=== PATIENT | male | born 1980 ===

== ENCOUNTER 2024-01-07 10:36 | Emergency (ER) | payer MEDICAID ==
[~2024-01-07] VITALS: Ht 177.8 cm; Wt 72.7 kg
[2024-01-07] MEDS: dicyclomine 10 MG capsule PO ONE (11:38)
[2024-01-07] MEDS: ondansetron 4mg rapidly disintigrating tab PO ONE (11:38)
[2024-01-07] MEDS: loperamide 2mg capsule PO ONE (11:39)
[2024-01-07 11:58] LABS: BASOPHILS # (AUTO) 0.1 X10'3 (0-0.2); BASOPHILS % (AUTO) 0.7 % (0-1); EOSINOPHILS % (AUTO) 0 % (0-6); HEMATOCRIT 46.2 % (42.0-52.0); HEMOGLOBIN 15.2 g/dl (14.0-17.9); LYMPHOCYTES # (AUTO) 0.9 X10'3 (1.1-4.8); LYMPHOCYTES % (AUTO) 5.6 % (21-51); MEAN CORPUSCULAR HEMOGLOBIN 29.3 PG (27.0-31.0); MEAN CORPUSCULAR HGB CONC 32.8 g/dL (33.0-36.5); MEAN CORPUSCULAR VOLUME 89.3 FL (78-98); MEAN PLATELET VOLUME 7.3 FL (7.4-10.4); MONOCYTES # (AUTO) 0.9 X10'3 (0-0.9); MONOCYTES % (AUTO) 5.8 % (2-12); NEUTROPHILS # (AUTO) 13.5 X10'3 (1.8-7.7); NEUTROPHILS % (AUTO) 87.9 % (42-75); PLATELET COUNT 360 X10'3 (140-440); RED BLOOD COUNT 5.17 X10'6 (4.70-6.10); RED CELL DISTRIBUTION WIDTH 13.6 % (11.5-14.5); WHITE BLOOD COUNT 15.4 X10'3 (4.5-11.0)
[2024-01-07 12:03] LABS: ALANINE AMINOTRANSFERASE 21 U/L (12-78); ALBUMIN 3.1 G/DL (3.4-5.0); ALBUMIN/GLOBULIN RATIO 0.8 (1.1-1.5); ALKALINE PHOSPHATASE 78 IU/L (46-116); ANION GAP 12 (8-16); ASPARTATE AMINO TRANSFERASE 23 U/L (10-37); BILIRUBIN,TOTAL 0.6 MG/DL (0.1-1.0); BLOOD UREA NITROGEN 16 MG/DL (7-18); BUN/CREATININE RATIO 11.6 (10.0-20.0); CHLORIDE 99 MMOL/L (99-107); CREATININE 1.38 MG/DL (0.60-1.10); GLUCOSE 172 MG/DL (70-104); POTASSIUM 3.1 MMOL/L (3.5-5.1); SODIUM 135 MMOL/L (135-145); TOTAL CARBON DIOXIDE 23.9 MMOL/L (24-32); TOTAL PROTEIN 6.8 G/DL (6.4-8.2); eCRCL 72 ML/MIN; eGFR 57 ML/MIN
[2024-01-07] MEDS: normal saline 1000ml 1,000 ML IV ONE (12:56)
[2024-01-07 13:13] LABS: TOTAL CELLS COUNTED 100
[2024-01-07 13:14] LABS: PLATELET ESTIMATE NORMAL; TOXIC VACUOLATION FEW
[2024-01-07] MEDS ORDERED: POTASSIUM BICARB 20meq eff tab 20 MEQ TABLET.EFF PO ONE (14:00)
[2024-01-07] MEDS: potassium bicarbonate/cit acid 25mEq tablet.effervescent PO STA (14:16)
[2024-01-07] MEDS: bismuth subsalicylate 262mg/15ml oral suspension PO ONE (14:16)
[2024-01-07] MEDS: naloxone 0.4 mg/ml inj IV ONE (14:45)
[2024-01-07] MEDS ORDERED: potassium bicarbonate/cit acid 25mEq tablet.effervescent PO SCH (16:00)
[2024-01-07 16:06] LABS: ALBUMIN 2.8 G/DL (3.4-5.0); ANION GAP 9 (8-16); BLOOD UREA NITROGEN 16 MG/DL (7-18); BUN/CREATININE RATIO 13.9 (10.0-20.0); CHLORIDE 99 MMOL/L (99-107); CREATININE 1.15 MG/DL (0.60-1.10); GLUCOSE 108 MG/DL (70-104); POTASSIUM 3.7 MMOL/L (3.5-5.1); SODIUM 134 MMOL/L (135-145); TOTAL CARBON DIOXIDE 26.5 MMOL/L (24-32); eCRCL 86 ML/MIN; eGFR 70 ML/MIN
[2024-01-07 16:15] VITALS: BP 135/86; RESP 12; O2SAT 97
[2024-01-07] MEDS ORDERED: LOPE-144 PO (16:59)
[2024-01-07] MEDS ORDERED: DICY10CA88 PO (16:59)
[2024-01-07] MEDS ORDERED: BISM262T46 PO (16:59)
[2024-01-07] MEDS ORDERED: ONDA4TAB12 PO (16:59)
[2024-01-07 17:12] VITALS: PULSE 78; TEMP 99.6
== END 2024-01-07 17:15 | disposition home or self-care (01) ==
LOC: ER 10:37
DX: E87.6 Hypokalemia (principal); E87.1 Hypo-osmolality and hyponatremia; K52.9 Noninfective gastroenteritis and colitis, unspecified; Z88.0 Allergy status to penicillin
CPT/HCPCS: 36415; 74176; 80048; 80053; 85007; 85025; 96361; 96374; 99285; J2310; J7030